=== PATIENT | male | born 1985 | race Caucasian/White ===

== ENCOUNTER 2020-08-02 11:48 | Emergency (ER) | payer OTHER ==
[2020-08-02] MEDS ORDERED: PERCOCET 5-3251 EACH PO (13:22)
== END 2020-08-02 13:44 | disposition home or self-care (01) ==
LOC: ER1 11:48
DX: S52.134A Nondisplaced fracture of neck of right radius, initial encounter for closed fracture (principal); F17.210 Nicotine dependence, cigarettes, uncomplicated; W23.0XXA Caught, crushed, jammed, or pinched between moving objects, initial encounter; Y92.524 Gas station as the place of occurrence of the external cause
CPT/HCPCS: 29105; 71111; 73060; 73080; 73090; 96372; 99283; J1885

== ENCOUNTER 2020-11-12 19:05 | Emergency (ER) | payer SELFPAY ==
[~2020-11-12 19:05] MED LIST: PERCOCET 5-3251 EACH PO
[2020-11-12 21:15] LABS: HEMOGLOBIN 14.6 gm/dl (14.0-17.5); RED BLOOD COUNT 4.77 M/UL (4.20-5.50); WHITE BLOOD COUNT 10.7 K/UL (4.5-11.0)
[2020-11-12 21:32] LABS: BUN/CREATININE RATIO 10 (0-10)
[2020-11-13] MEDS ORDERED: AUGMENTIN 875-1 EACH PO (00:05)
[2020-11-13] MEDS ORDERED: VIBRAMYCIN100 MG PO (00:05)
== END 2020-11-13 00:32 | disposition home or self-care (01) ==
LOC: ER1 19:05
PROVIDERS: Physician Assistant
DX: J18.9 Pneumonia, unspecified organism (principal); F17.210 Nicotine dependence, cigarettes, uncomplicated; Z20.822 Contact with and (suspected) exposure to COVID-19
CPT/HCPCS: 0240U; 36600; 71045; 80053; 82550; 82553; 82803; 83874; 84484; 85025; 99285